=== PATIENT | male | born 1975 | race Caucasian/White ===

== ENCOUNTER → 2019-06-18 | Outpatient (CLI) | payer BC ==
[2019-06-18 14:40] LABS: COMPLEMENT C3 120 MG/DL (90-180); COMPLEMENT C4 21 MG/DL (10-40); RHEUMATOID FACTOR QUANT < 10.0 IU/ML (<15.0)
== END ==
LOC: M PLALAB 10:23
PROVIDERS: ATTEND Internal Medicine Pulmonary Disease
DX: R91.8 Other nonspecific abnormal finding of lung field (principal); R06.00 Dyspnea, unspecified

== ENCOUNTER → 2019-06-28 | Outpatient (CLI) | payer BC ==
[2019-06-28 13:40] LABS: HEMATOCRIT 48.7 % (42.0-52.0); HEMOGLOBIN 16.3 g/dl (13.5-17.5); MEAN CORPUSCULAR HEMOGLOBIN 29.7 pg (27.0-33.0); MEAN CORPUSCULAR HGB CONC 33.5 g/dl (32.0-36.5); MEAN CORPUSCULAR VOLUME 88.9 fl (80.0-96.0); PLATELET COUNT, AUTOMATED 311 10^3/uL (150-450); RED BLOOD COUNT 5.48 10^6/uL (4.30-6.10); WHITE BLOOD COUNT 10.5 10^3/uL (4.0-10.0)
[2019-06-28 13:49] LABS: APPEARANCE, URINE HAZY (CLEAR); BACTERIA, URINE AUTO NEGATIVE (NEGATIVE); BILIRUBIN, URINE AUTO NEGATIVE (NEGATIVE); BLOOD, URINE BLOOD 3+ (NEGATIVE); COLOR, URINE YELLOW (YELLOW); GLUCOSE, URINE (UA) AUTO NEGATIVE (NEGATIVE); KETONE, URINE AUTO NEGATIVE (NEGATIVE); LEUKOCYTE ESTERASE, URINE AUTO NEGATIVE (NEGATIVE); MUCUS, URINE SMALL (NEGATIVE); NITRITE, URINE AUTO NEGATIVE (NEGATIVE); PROTEIN, URINE AUTO 1+ mg/dL (NEGATIVE); RBC, URINE AUTO 0 /HPF (0-3); SPECIFIC GRAVITY URINE AUTO 1.021 (1.002-1.035); SQUAMOUS EPITHELIAL CELL UR AU 0 /HPF (0-6); UROBILINOGEN, URINE AUTO 0.2 mg/dL (0.0-2.0); WBC, URINE AUTO 2 /HPF (0-3)
[2019-06-28 14:04] LABS: INR 1.2; PROTHROMBIN TIME 14.9 SECONDS (11.8-14.0)
[2019-06-28 14:06] LABS: BLOOD UREA NITROGEN 13 MG/DL (7-18); CALCIUM LEVEL 8.9 MG/DL (8.5-10.1); CARBON DIOXIDE LEVEL 29 MEQ/L (21-32); CHLORIDE LEVEL 102 MEQ/L (98-107); CREATININE FOR GFR 0.85 MG/DL (0.70-1.30); GLOMERULAR FILTRATION RATE > 60.0 (>60); GLUCOSE, FASTING 106 MG/DL (70-100); POTASSIUM SERUM 4.1 MEQ/L (3.5-5.1); SODIUM LEVEL 136 MEQ/L (136-145)
[2019-06-28 14:15] LABS: ABG BASE EXCESS 2.5 (-2.0-2.0); ABG HCO3 26.7 MEQ/L (22.0-26.0); ABG O2 SATURATION 95.4 % (95.0-99.0); ABG PARTIAL PRESSURE CO2 39.7 mmHg (35.0-45.0); ABG PARTIAL PRESSURE O2 73.4 mmHg (75.0-100.0); ABG STANDARD HCO3 26.6 MEQ/L (22.0-26.0); ABG TOTAL CO2 27.9 MEQ/L (22.0-29.0); ABG pH (ARTERIAL) 7.445 UNITS (7.350-7.450)
--- NOTE | 2019-06-28 14:15 | ECGEPIP ---
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
[2019-06-28 14:19] LABS: PARTIAL THROMBOPLASTIN TIME 31.1 SECONDS (25.0-38.4)
--- NOTE | 2019-06-28 14:49 | REP ---
Clinical: Pre admission. Technique: PA and lateral. Comparison: 06/08/2019. Findings: Bilateral lower lobe infiltrates and pleural effusions noted. No pneumothorax. Cardiac silhouette is normal. Skeletal structures are intact. Impression: Bilateral lower lobe multifocal pneumonia. Electronically Signed by Bradford Naranjo MD 06/28/2019 02:41 P
== END ==
LOC: M ADMPAT 13:06
PROVIDERS: ATTEND Thoracic Surgery (Cardiothoracic Vascular Surgery)
DX: R91.8 Other nonspecific abnormal finding of lung field (principal)

== ENCOUNTER 2019-07-01 06:16 | Inpatient (IN) | payer BC ==
[2019-07-01] VITALS (10 sets, daily range): BP systolic 110–147; BP diastolic 58–82
[~2019-07-01] VITALS: Ht 170.2 cm; Wt 101.9 kg
[~2019-07-01 06:16] MED LIST: LIDOCAINE 1% MDV 20ML VIAL SQ PRN; LR 1,000 ML IV ONE; MUPIROCIN 2% OINT 22 GM TUBE TOP ONE; VANCOMYCIN HCL 1,000 MG, VIAL MATE ADAPTER 1 EACH in D5W 250 ML IV ONE
--- NOTE | 2019-07-01 07:51 | REPVR ---
PROCEDURE INFORMATION: Exam: CT Chest Without Contrast Exam date and time: 07/01/2019 7:11 AM Age: 44 years old Clinical indication: Condition or disease; Lung condition and disease; Pulmonary fibrosis; Patient HX: PT going to or today for bronch and possible thoracotomy; Additional info: Thorscopy TECHNIQUE: Imaging protocol: Computed tomography of the chest without contrast. 3D rendering: MIP and/or 3D reconstructed images were created by the technologist. Radiation optimization: All CT scans at this facility use at least one of these dose optimization techniques: automated exposure control; mA and/or kV adjustment per patient size (includes targeted exams where dose is matched to clinical indication); or iterative reconstruction. COMPARISON: CT CHEST W/O CONTRAST - OUTSIDE PRIOR 06/08/2019 12:00 AM FINDINGS: Lungs: There is basilar predominant consolidation in both lungs. Consolidation in the upper lung zones is patchy and peripheral. There is little ground-glass opacity. There is normal patency of the airways. There is mild peripheral septal thickening. The pattern and distribution of findings is very similar to the prior exam with slightly more confluent consolidation in the bilateral lower lobes. Pleural space: No pleural effusions or pneumothorax identified. Heart: The heart is normal in size. Aorta: No aortic aneurysm. Lymph nodes: There are multiple borderline sized mediastinal lymph nodes in the paratracheal, subcarinal, and AP window regions. There is a suggestion of mildly enlarged hilar lymph nodes, but assessment is limited by the lack of contrast. Bones/joints: No suspicious osseous lesions. No acute fractures or dislocations. Soft tissues: Mild gynecomastia is noted. IMPRESSION: 1. Persistent, bilateral, basilar predominant multifocal consolidation with mild peripheral septal thickening. This is nonspecific, but may be due to organizing pneumonia. 2. Mild mediastinal lymphadenopathy, probably reactive. Electronically signed by: Aviva Christiansen On 07/01/2019 07:50:58 AM
[2019-07-01] MEDS ORDERED: fentaNYL 100 MCG/2 ML INJECTION (J3010) As Ordered ONE (07:57)
[2019-07-01] MEDS ORDERED: MIDAZOLAM INJ 2 MG/2 ML VIAL (J2250) As Ordered ONE ×2 (07:57→08:34)
[2019-07-01] MEDS ORDERED: BUPIVACAINE HCL 0.5% 10 ML VIAL As Ordered ONE (08:32)
[2019-07-01] MEDS ORDERED: CETACAINE SPRAY 5GM As Ordered ONE (08:32)
[2019-07-01] MEDS ORDERED: BUPIVACAINE LIPOSOME/PF 1.3% 20ML VIAL (13.3MG/ML)(EXPAREL)(C9290 PER1MG) As Ordered ONE (08:32)
[2019-07-01] MEDS ORDERED: dexameTHASONE 4 MG/ML 1ML VIAL (J1100) As Ordered ONE (08:34)
[2019-07-01] MEDS ORDERED: ONDANSETRON 4MG/2ML VIAL (J2405) As Ordered ONE (08:34)
[2019-07-01] MEDS ORDERED: fentaNYL 250 MCG/5 ML INJECTION (J3010) As Ordered ONE (08:34)
[2019-07-01] MEDS ORDERED: propofoL 200 MG/20 ML VIAL As Ordered ONE ×3 (08:34→11:09)
[2019-07-01] MEDS ORDERED: LIDOCAINE 2% INJ 100 MG/5 ML SDV (FOR ANES.) As Ordered ONE (08:34)
[2019-07-01] MEDS ORDERED: ROCURONIUM BROMIDE 50 MG/5 ML VIAL As Ordered ONE ×3 (08:34→10:51)
[2019-07-01] MEDS ORDERED: BUPIVACAINE HCL 0.25% 30 ML VIAL As Ordered ONE (08:35)
[2019-07-01] MEDS ORDERED: WALLBOXKEY XX PRN (09:30)
[2019-07-01] MEDS ORDERED: diphenhydrAMINE INJ 50MG/ML VIAL (J1200) IV PRN (09:30)
[2019-07-01] MEDS ORDERED: NALOXONE INJ 0.4 MG/1 ML VIAL (J2310) IV PRN (09:30)
[2019-07-01] MEDS ORDERED: EPIDURAL/PCA KEYS XX PRN (09:30)
[2019-07-01] MEDS ORDERED: ONDANSETRON 4MG/2ML VIAL (J2405) IV PRN ×2 (09:30→12:45)
[2019-07-01] MEDS ORDERED: MIDAZOLAM INJ 2 MG/2 ML VIAL (J2250) IV ONE (09:30)
[2019-07-01] MEDS ORDERED: METOCLOPRAMIDE INJ 10MG/2ML VIAL (J2765) IV PRN ×2 (09:30→12:45)
[2019-07-01] MEDS ORDERED: fentaNYL 100 MCG/2 ML INJECTION (J3010) IV ONE (09:30)
[2019-07-01] MEDS ORDERED: SUGAMMADEX SODIUM 500 MG/5 ML VIAL (BRIDION) As Ordered ONE (10:38)
[2019-07-01] MEDS ORDERED: PHENYLephrine HCL 500 MCG/5 ML (100MCG/ML) SYRINGE (J2370) As Ordered ONE ×2 (10:39→11:03)
[2019-07-01] MEDS ORDERED: KCL 20MEQ IN D5/NS 1000ML 1,000 ML IV SCH (11:09)
[2019-07-01] MEDS ORDERED: NORCO, ANEXSIA 5/325MG TABLET (HYDROcodone/ACETAMINOPHEN) PO PRN (11:15)
[2019-07-01] MEDS ORDERED: LEVALBUTEROL 1.25 MG/0.5 ML CONCENTRATE NEB NEB PRN (11:15)
[2019-07-01] MEDS ORDERED: BISACODYL 10 MG SUPP PR PRN (11:15)
[2019-07-01] MEDS ORDERED: PERCOCET 5MG/325MG TAB PO PRN ×3 (11:15→12:45)
[2019-07-01] MEDS ORDERED: ACETAMINOPHEN TAB 650MG DOSE (2X325MG) PO PRN (11:15)
--- NOTE | 2019-07-01 11:49 | RO ---
DATE OF PROCEDURE: 07/01/2019 PREPROCEDURE DIAGNOSIS: Interstitial lung disease, hypoxia. POSTPROCEDURE DIAGNOSIS: Interstitial lung disease, hypoxia; pathology pending. PROCEDURE: Multiple wedge resection of right lower, right middle, and right upper lobe with video-assisted thoracoscopy surgery (VATS) technique, bronchoscopy and five-level rib block. SURGEON: Héctor Lucas MD WEIGHT REDUCTION SPECIALIST: ANESTHESIA: FINDINGS: The bronchoscopy revealed a normal branching tracheal tree. There were scant secretions. There were no intrabronchial lesions. The fluoroscopy revealed extensive involvement of the lung looking chappell and cobblestoned particularly in the right lower lobe. Wedge resection was taken of each lobe and these were sent for pathological examination as well as aerobic and anaerobic fungal and tuberculosis (TB) cultures. DESCRIPTION OF PROCEDURE: Under satisfactory single-lumen tube endotracheal intubation, the bronchoscope was passed into the tracheobronchial tree. It has normal branching pattern. Each segment and subsegmental were thoroughly inspected and there were no endobronchial lesions. There were scant secretions. The patient was intubated with a double-lumen tube and positioned accordingly. The patient was then turned into the left lateral decubitus position and sterilely prepped and draped in the usual fashion. An anterior VATS incision was made in the approximate sixth intercostal space and a 5 mm port was placed. Inspection revealed the above findings with the endoscope. Two additional incisions were made, one for an additional 5 mm port and one for a 12 mm port. The lower lobe lung at the costophrenic angle was seized with a grasper and a wedge resection was successfully completed, and the specimen was removed in an Endo Catch bag. The same likewise for the middle lobe anteriorly and the upper lobe of the cupula. They were all removed in Endo Catch bags. Specimens were properly sequestered in order, and I then cut the specimens for aerobic and anaerobic fungal and TB cultures. Two chest tubes were placed, #24 curved, a #24 straight anteriorly. These were secured to the chest wall. The lung was reinflated and Exparel placed in the incisions. A five-level rib block consisting of Exparel and Marcaine was then instilled. The 12 mm port incision was closed with running #0 Vicryl suture, followed by running #3-0 Vicryl suture for the subcutaneous tissue and running #4-0 Monopril subcuticular suture for the skin. Patient tolerated the procedure well and left the operating room in satisfactory condition for the recovery room. JUAN
[2019-07-01] MEDS ORDERED: KETOROLAC 30 MG/ML VIAL (J1885) As Ordered ONE (11:54)
[2019-07-01] MEDS: FENTANYL/BUPIVACAINE/NACL BAG 250 ML EPIDURAL SCH (12:05)
[2019-07-01 12:11] LABS: ABG BASE EXCESS 0.4 (-2.0-2.0); ABG HCO3 26.1 MEQ/L (22.0-26.0); ABG O2 SATURATION 87.4 % (95.0-99.0); ABG PARTIAL PRESSURE CO2 45.7 mmHg (35.0-45.0); ABG PARTIAL PRESSURE O2 54.6 mmHg (75.0-100.0); ABG STANDARD HCO3 24.6 MEQ/L (22.0-26.0); ABG TOTAL CO2 27.5 MEQ/L (22.0-29.0); ABG pH (ARTERIAL) 7.375 UNITS (7.350-7.450)
--- NOTE | 2019-07-01 12:12 | REP ---
Clinical: Follow-up interstitial lung disease. Comparison: 06/28/2019. Findings: Two right-sided chest tubes are identified and a minuscule right apical pneumothorax cannot be excluded. Chronic interstitial changes are suggested along with bilateral lower lobe opacities suggesting elements of atelectasis/consolidation. Impression: Two right-sided chest tubes. Cannot exclude a minuscule right apical pneumothorax. Bilateral lower lobe consolidations/atelectasis. Electronically Signed by Bradford Naranjo MD 07/01/2019 12:03 P
[2019-07-01 12:21] LABS: BASO # 0.1 10^3/uL (0.0-0.2); BASO % 0.7 % (0.0-1.0); EOS # 0.1 10^3/uL (0.0-0.5); HEMATOCRIT 46.2 % (42.0-52.0); HEMOGLOBIN 15.4 g/dl (13.5-17.5); LYMPH # 1.1 10^3/uL (1.5-5.0); LYMPH % 9.8 % (24.0-44.0); MEAN CORPUSCULAR HEMOGLOBIN 29.9 pg (27.0-33.0); MEAN CORPUSCULAR HGB CONC 33.3 g/dl (32.0-36.5); MEAN CORPUSCULAR VOLUME 89.7 fl (80.0-96.0); MONO # 0.5 10^3/uL (0.0-0.8); MONO % 4.1 % (0.0-5.0); NEUTROPHILS # 9.5 10^3/uL (1.5-8.5); NEUTROPHILS % 83.8 % (36.0-66.0); PLATELET COUNT, AUTOMATED 357 10^3/uL (150-450); RED BLOOD COUNT 5.15 10^6/uL (4.30-6.10); WHITE BLOOD COUNT 11.3 10^3/uL (4.0-10.0)
[2019-07-01] MEDS: KETOROLAC 30 MG/ML VIAL (J1885) IV SCH ×3 (12:31→17:42)
[2019-07-01] MEDS ORDERED: LR 1,000 ML IV SCH (12:45)
[2019-07-01] MEDS ORDERED: fentaNYL 100 MCG/2 ML INJECTION (J3010) IV PRN (12:45)
[2019-07-01 12:58] LABS: BLOOD UREA NITROGEN 14 MG/DL (7-18); CALCIUM LEVEL 8.6 MG/DL (8.5-10.1); CARBON DIOXIDE LEVEL 26 MEQ/L (21-32); CHLORIDE LEVEL 102 MEQ/L (98-107); CREATININE FOR GFR 0.84 MG/DL (0.70-1.30); GLOMERULAR FILTRATION RATE > 60.0 (>60); GLUCOSE, FASTING 142 MG/DL (70-100); POTASSIUM SERUM 5.1 MEQ/L (3.5-5.1); SODIUM LEVEL 135 MEQ/L (136-145)
[2019-07-01] MEDS: D5W/0.9% SODIUM CHLORIDE 1,000 ML IV SCH (14:40)
[2019-07-01] MEDS: LEVALBUTEROL 1.25 MG/0.5 ML CONCENTRATE NEB NEB SCH ×2 (15:25→20:25)
[2019-07-01] MEDS: DOCUSATE SODIUM 100 MG CAP PO SCH (21:26)
[2019-07-01] MEDS: HEPARIN SOD (PORCINE) 5000 UNITS/ML VIAL (J1644 PER 1000UNITS) SC SCH (21:26)
[2019-07-02] VITALS (9 sets, daily range): BP systolic 42–133; BP diastolic 20–83
[2019-07-02] MEDS: KETOROLAC 30 MG/ML VIAL (J1885) IV SCH ×4 (00:16→17:22)
[2019-07-02] MEDS: LEVALBUTEROL 1.25 MG/0.5 ML CONCENTRATE NEB NEB SCH ×4 (01:44→20:59)
[2019-07-02] MEDS: D5W/0.9% SODIUM CHLORIDE 1,000 ML IV SCH (02:09)
[2019-07-02 05:29] LABS: ABG BASE EXCESS 0.1 (-2.0-2.0); ABG HCO3 24.7 MEQ/L (22.0-26.0); ABG PARTIAL PRESSURE CO2 40.1 mmHg (35.0-45.0); ABG PARTIAL PRESSURE O2 146.8 mmHg (75.0-100.0); ABG STANDARD HCO3 24.6 MEQ/L (22.0-26.0); ABG TOTAL CO2 25.9 MEQ/L (22.0-29.0); ABG pH (ARTERIAL) 7.407 UNITS (7.350-7.450)
[2019-07-02 06:17] LABS: BASO % 0.3 % (0.0-1.0); EOS # 0.1 10^3/uL (0.0-0.5); EOS % 0.9 % (0.0-3.0); HEMATOCRIT 40.7 % (42.0-52.0); LYMPH # 1.3 10^3/uL (1.5-5.0); LYMPH % 11.3 % (24.0-44.0); MEAN CORPUSCULAR HEMOGLOBIN 29.6 pg (27.0-33.0); MEAN CORPUSCULAR HGB CONC 32.9 g/dl (32.0-36.5); MONO # 0.9 10^3/uL (0.0-0.8); MONO % 7.5 % (0.0-5.0); NEUTROPHILS # 9.4 10^3/uL (1.5-8.5); NEUTROPHILS % 79.4 % (36.0-66.0); PLATELET COUNT, AUTOMATED 283 10^3/uL (150-450); RED BLOOD COUNT 4.52 10^6/uL (4.30-6.10); WHITE BLOOD COUNT 11.8 10^3/uL (4.0-10.0)
[2019-07-02 06:18] LABS: HEMOGLOBIN 13.4 g/dl (13.5-17.5)
[2019-07-02 06:42] LABS: BLOOD UREA NITROGEN 13 MG/DL (7-18); CARBON DIOXIDE LEVEL 27 MEQ/L (21-32); CHLORIDE LEVEL 104 MEQ/L (98-107); CREATININE FOR GFR 0.73 MG/DL (0.70-1.30); GLOMERULAR FILTRATION RATE > 60.0 (>60); GLUCOSE, FASTING 114 MG/DL (70-100); SODIUM LEVEL 137 MEQ/L (136-145)
--- NOTE | 2019-07-02 07:53 | IPN ---
DATE: 07/02/2019 This now the first postoperative day for Mr. Kowalski. He has had a stable night of surgery and he is down to 3 liters nasal cannula. His pain is being well controlled with the epidural. His vital signs show a maximum temperature (t-max) of 98.5 with a heart rate that ranges between 87 and 94 and is in sinus rhythm, respiratory rate of 18 to 21 without the use of accessory muscles, who is 92-93% saturated on 3 liters nasal cannula and his blood pressure is ranging between 123/76 to 108/63. His intake and output over the past 24 hours has been recorded as 1230 in and 928 out for a positivity of 1400 mL. He has putout 148 mL of the chest tube. There is no air leak. Weight is pending today. PHYSICAL EXAMINATION: LUNGS: He has bibasilar crackles on both sides which are more fine and velcro like. Percussion is full to the diaphragm. CARDIAC EXAM: Without murmurs, clicks, gallops or rubs. I cannot feel his point of maximum impulse (PMI). S1, S2 are normal. ABDOMEN: Soft, nontender. Bowel sounds are positive. He is slightly distended and typanetic. EXTREMITIES: There is no pretibial edema. No calf tenderness. No differential swelling of the upper extremities. SKIN: Warm, dry and perfused without cyanosis or mottling, including that of the nail beds and knees. NECK: Supple. There is no jugular venous distention. No subcutaneous emphysema. Trachea is midline. MOUTH: Shows his mucous membranes to be pink and moist. Lips and commissures without lesions. There is no thrush. EYES: Show his pupils to be equal and reactive. Extraocular motion intact. Sclerae anicteric. NEUROLOGIC: Shows II through XII intact with gross motor and gross sensation intact. Gait is not tested. PSYCHIATRIC: Shows him to be awake and alert, oriented times three with appropriate mood and affect and conversational. His white count today is 11.8 with a hemoglobin and hematocrit of 13.4 and 40.7 respectively. Platelet count is 283 and differential shows 79% neutrophils, 11% lymphocytes, and 7% monocytes. There are no immature forms. No toxic granulations. Electrolytes are normal with a BUN and creatinine of 13 and 0.73, a glucose of 114, and a calcium of 8.0. Chest x-ray is pending today. IMPRESSION: 1. Interstitial lung disease. Final pathology pending. 2. Hypoxia. 3. One day status post multiple wedge resections. PLAN AND DISCUSSION: I will transfer him to the progressive care unit (PCU) today. I will continue him on chest tube suction. I will not diurese him today. I am quite gratified that he is down to 3 liters nasal cannula.
[2019-07-02] MEDS: FENTANYL/BUPIVACAINE/NACL BAG 250 ML EPIDURAL SCH (08:20)
[2019-07-02] MEDS ORDERED: PANTOPRAZOLE 40MG TAB (PROTONIX) PO SCH (09:00)
[2019-07-02] MEDS ORDERED: PANTOPRAZOLE 40MG INJ (PROTONIX) (C9113) IV SCH (09:00)
--- NOTE | 2019-07-02 09:07 | REP ---
Clinical: Interstitial lung disease. Technique: PA and lateral. Comparison: 07/01/2019. Findings: Two right-sided chest tubes are in stable position. Visualized mediastinum and cardiac silhouette are grossly normal. Bilateral mid to lower lobe opacities consistent with consolidation/atelectasis and small pleural effusions are essentially unchanged. No obvious pneumothorax identified (although small right anterior pneumothorax cannot definitively be excluded). Impression: 1. No significant change from prior examination with continued primarily mid to lower lobe opacities suggesting atelectasis/consolidation and small effusions. 2. No definite pneumothorax although subtle small anterior right pneumothorax cannot definitively be excluded. Electronically Signed by Bradford Naranjo MD 07/02/2019 08:59 A
[2019-07-02] MEDS: MOM 30ML SUSPENSION UDC PO SCH (09:14)
[2019-07-02] MEDS: HEPARIN SOD (PORCINE) 5000 UNITS/ML VIAL (J1644 PER 1000UNITS) SC SCH ×2 (09:15→21:13)
[2019-07-02] MEDS: DOCUSATE SODIUM 100 MG CAP PO SCH ×2 (09:15→21:12)
[2019-07-02] MEDS ORDERED: SLF 3 ML SYR IV PRN (13:15)
[2019-07-02] MEDS: SLF 3 ML SYR IV SCH ×2 (14:10→21:14)
[2019-07-03] VITALS: BP 129/72
[2019-07-03] MEDS: KETOROLAC 30 MG/ML VIAL (J1885) IV SCH ×4 (00:14→18:12)
[2019-07-03] MEDS: LEVALBUTEROL 1.25 MG/0.5 ML CONCENTRATE NEB NEB SCH ×4 (02:11→20:24)
[2019-07-03 04:00] VITALS: BP 126/75
[2019-07-03] MEDS: FENTANYL/BUPIVACAINE/NACL BAG 250 ML EPIDURAL SCH (04:56)
[2019-07-03] MEDS: SLF 3 ML SYR IV SCH ×3 (05:52→21:32)
[2019-07-03 08:00] VITALS: BP 154/76
--- NOTE | 2019-07-03 08:49 | REP ---
Clinical: History of interstitial lung disease. Technique: PA and lateral. Comparison: 07/02/2019. Findings: Two right-sided chest tubes are in stable position. Bilateral pleuroparenchymal changes including diffuse bilateral opacities and small pleural effusions are essentially unchanged. No obvious pneumothorax. Impression: No significant change. Bilateral pleuroparenchymal opacities again noted. Electronically Signed by Bradford Naranjo MD 07/03/2019 08:40 A
[2019-07-03 08:58] LABS: BASO # 0.1 10^3/uL (0.0-0.2); EOS # 0.5 10^3/uL (0.0-0.5); EOS % 5.9 % (0.0-3.0); HEMATOCRIT 44.9 % (42.0-52.0); HEMOGLOBIN 14.7 g/dl (13.5-17.5); LYMPH # 1.9 10^3/uL (1.5-5.0); LYMPH % 20.9 % (24.0-44.0); MEAN CORPUSCULAR HEMOGLOBIN 29.8 pg (27.0-33.0); MEAN CORPUSCULAR HGB CONC 32.7 g/dl (32.0-36.5); MEAN CORPUSCULAR VOLUME 91.1 fl (80.0-96.0); MONO # 0.7 10^3/uL (0.0-0.8); MONO % 7.6 % (0.0-5.0); NEUTROPHILS # 5.7 10^3/uL (1.5-8.5); NEUTROPHILS % 63.5 % (36.0-66.0); PLATELET COUNT, AUTOMATED 338 10^3/uL (150-450); RED BLOOD COUNT 4.93 10^6/uL (4.30-6.10)
[2019-07-03] MEDS ORDERED: PANTOPRAZOLE 40MG TAB (PROTONIX) PO SCH (09:00)
[2019-07-03] MEDS: HEPARIN SOD (PORCINE) 5000 UNITS/ML VIAL (J1644 PER 1000UNITS) SC SCH ×2 (09:12→21:32)
[2019-07-03] MEDS: PANTOPRAZOLE 40MG TAB (PROTONIX) PO SCH (09:12)
[2019-07-03] MEDS: MOM 30ML SUSPENSION UDC PO SCH (09:12)
[2019-07-03] MEDS: DOCUSATE SODIUM 100 MG CAP PO SCH ×2 (09:12→21:32)
[2019-07-03 09:17] LABS: BLOOD UREA NITROGEN 17 MG/DL (7-18); CALCIUM LEVEL 8.2 MG/DL (8.5-10.1); CARBON DIOXIDE LEVEL 27 MEQ/L (21-32); CHLORIDE LEVEL 103 MEQ/L (98-107); CREATININE FOR GFR 0.87 MG/DL (0.70-1.30); GLOMERULAR FILTRATION RATE > 60.0 (>60); GLUCOSE, FASTING 127 MG/DL (70-100); POTASSIUM SERUM 4.3 MEQ/L (3.5-5.1); SODIUM LEVEL 136 MEQ/L (136-145)
[2019-07-03 12:00] VITALS: BP 141/90
[2019-07-03] MEDS ORDERED: FUROSEMIDE 40 MG/4 ML VIAL (J1940) IV ONE (14:00)
--- NOTE | 2019-07-03 15:59 | IPN ---
DATE: 07/03/2019 This is now the second postoperative day for Mr. Kowalski. He has had a stable 24 hours. His pain is being well controlled at the chest tube insertion site. VITAL SIGNS: His vital signs show a maximum temperature (t-max) of 99.9 with a heart rate that ranges between 122 and 97 in a sinus rhythm, respiratory rate of 19 to 20 without the use of accessory muscles, who is 92 to 90% saturated on 3 liters nasal cannula, and whose blood pressure is ranging between 154/76 to 126/75. His intake and output over the past 24 hours has been recorded as 2985 in and 1217 out for a positivity of 1768 mL. He has put 192 mL out of the chest tube. He weighs 97.8 kg today compared to 100 kg yesterday. PHYSICAL EXAMINATION: LUNGS: He has the continued bibasilar Velcro crackles, particularly during inspiration. Percussion note is full to the diaphragm. CARDIAC EXAM: Without murmurs, clicks, gallops or rubs. I cannot feel his point of maximum impulse (PMI). S1, S2 are normal. ABDOMEN: Soft, nontender. Bowel sounds positive. There is no hepatomegaly. No costovertebral angle tenderness. EXTREMITIES: Show trace pretibial edema. No calf tenderness. No differential swelling of the upper extremities. SKIN: Warm, dry and perfused without cyanosis or mottling, including that of the nail beds and knees. NECK: Supple. There is no jugular venous distention. No subcutaneous emphysema. Trachea is midline. MOUTH: Shows his mucous membranes to be pink and moist. Lips and commissures without lesions. There is no thrush. EYES: Show his pupils to be equal and reactive. Extraocular motion intact. Sclerae anicteric. NEUROLOGIC: Shows II through XII intact with gross motor and gross sensation intact. Gait is not tested. PSYCHIATRIC: Shows him to be awake and alert, oriented times three with appropriate mood and affect and conversational. LABORATORY DATA His white count today is 9.0 with a hemoglobin and hematocrit of 14.7 and 44.9 and a platelet count of 338. Differential shows 68% neutrophils, 20% lymphocytes, 7% monocytes. There are no immature forms. No toxic granulations. His electrolytes are normal with a BUN and creatinine of 17 and 0.87, glucose of 127, calcium of 8.2. There are no blood gases on him today. His chest x-ray shows his lung fully expanded to the chest wall. Chest tubes are in good place. He has postoperative and infiltrative changes in the right lung. IMPRESSION: 1. Interstitial lung disease, final pathology pending. 2. Hypoxia. 3. Two days status post multiple wedge resections. PLAN/DISCUSSION: I will remove his chest tube from suction today. I will diurese him today. There is no air leak, for which I am gratified. I will probably remove the chest tubes tomorrow and discharge him on Friday.
[2019-07-03 16:00] VITALS: BP 135/85
[2019-07-03 20:00] VITALS: BP 137/80
[2019-07-04] VITALS: BP 129/71
[2019-07-04] MEDS: KETOROLAC 30 MG/ML VIAL (J1885) IV SCH ×5 (00:04→23:37)
[2019-07-04] MEDS: FENTANYL/BUPIVACAINE/NACL BAG 250 ML EPIDURAL SCH ×2 (01:24→23:57)
[2019-07-04] MEDS: LEVALBUTEROL 1.25 MG/0.5 ML CONCENTRATE NEB NEB SCH ×4 (01:43→20:42)
[2019-07-04 04:00] VITALS: BP 129/70
[2019-07-04] MEDS: SLF 3 ML SYR IV SCH ×3 (05:11→20:02)
[2019-07-04 06:54] LABS: BLOOD UREA NITROGEN 21 MG/DL (7-18); CALCIUM LEVEL 8.6 MG/DL (8.5-10.1); CARBON DIOXIDE LEVEL 30 MEQ/L (21-32); CHLORIDE LEVEL 100 MEQ/L (98-107); CREATININE FOR GFR 0.76 MG/DL (0.70-1.30); GLOMERULAR FILTRATION RATE > 60.0 (>60); GLUCOSE, FASTING 92 MG/DL (70-100); POTASSIUM SERUM 4.1 MEQ/L (3.5-5.1); SODIUM LEVEL 133 MEQ/L (136-145)
[2019-07-04 07:42] LABS: BASO # 0.1 10^3/uL (0.0-0.2); BASO % 1.1 % (0.0-1.0); EOS # 0.8 10^3/uL (0.0-0.5); EOS % 7.6 % (0.0-3.0); HEMATOCRIT 41.4 % (42.0-52.0); HEMOGLOBIN 13.7 g/dl (13.5-17.5); LYMPH # 2.1 10^3/uL (1.5-5.0); LYMPH % 20.7 % (24.0-44.0); MEAN CORPUSCULAR HEMOGLOBIN 29.9 pg (27.0-33.0); MEAN CORPUSCULAR HGB CONC 33.1 g/dl (32.0-36.5); MEAN CORPUSCULAR VOLUME 90.4 fl (80.0-96.0); MONO # 0.8 10^3/uL (0.0-0.8); MONO % 7.5 % (0.0-5.0); NEUTROPHILS # 6.3 10^3/uL (1.5-8.5); NEUTROPHILS % 62.4 % (36.0-66.0); PLATELET COUNT, AUTOMATED 333 10^3/uL (150-450); RED BLOOD COUNT 4.58 10^6/uL (4.30-6.10)
[2019-07-04 08:00] VITALS: BP 137/79
--- NOTE | 2019-07-04 09:00 | REP ---
Clinical: Follow up. Post procedure. Technique: PA and lateral. Comparison: 07/03/2019. Findings: Two right-sided chest tubes and right-sided postsurgical changes with basilar atelectasis are again appreciated. Left basilar atelectasis and small pleural reaction again noted and unchanged. Current examination demonstrates small right apical pneumothorax. The mediastinum and cardiac silhouette are stable. Skeletal structures intact. Impression: 1. Right-sided postsurgical changes. 2. Right apical pneumothorax. 3. Bibasilar atelectasis and small pleural reactions similar to prior examination. Electronically Signed by Bradford Naranjo MD 07/04/2019 08:52 A
[2019-07-04] MEDS: MOM 30ML SUSPENSION UDC PO SCH (09:19)
[2019-07-04] MEDS: DOCUSATE SODIUM 100 MG CAP PO SCH ×2 (09:19→20:02)
[2019-07-04] MEDS: PANTOPRAZOLE 40MG TAB (PROTONIX) PO SCH (09:19)
[2019-07-04] MEDS: HEPARIN SOD (PORCINE) 5000 UNITS/ML VIAL (J1644 PER 1000UNITS) SC SCH ×2 (09:20→20:02)
[2019-07-04 12:00] VITALS: BP 143/85
[2019-07-04] MEDS ORDERED: FUROSEMIDE 40 MG/4 ML VIAL (J1940) IV ONE (13:00)
--- NOTE | 2019-07-04 13:33 | IPN ---
DATE: 07/04/2019 This is now the third postoperative day for Mr. Kowalski. His pain is being fairly well controlled at the chest tube insertion site. His vital signs show a maximum temperature (T-max) of 98.9 with a heart rate that ranges between 120 and 105 in sinus rhythm and a respiratory rate of 18-20 without the use of accessory muscles, who is 91% saturated on 3 liters nasal cannula and his blood pressures range between 129/70 to 137/79. His intake and output over the past 24 hours has been recorded as 2282 in and 2700 out for a negativity of 418 mL. He has put out 2500 mL in urine. He put 200 mL out the chest tube yesterday and 40 in the last 12 hours. He weighs 101.2 kg today compared to 97.8 kg yesterday. On physical examination, he has bibasilar Velcro crackles which are continuing and unchanged. Percussion note is full to the diaphragm. Cardiac exam is without murmurs, clicks, gallops or rubs. I cannot feel his point of maximum impulse (PMI). S1 and S2 are normal. Abdomen is soft and nontender. Bowel sounds are positive. He is slightly distended. There is no hepatomegaly. No costovertebral (CVA) tenderness. Extremities show trace pretibial edema with no calf tenderness. No differential swelling of the upper extremities. Skin is warm, dry and perfused without cyanosis or mottling including that of the nail beds and knees. Neck is supple. There is no jugular venous distention. No subcutaneous emphysema. Trachea is midline. Mouth shows his mucous membranes to be pink and moist. Lips and commissures are without lesions. There is no thrush. Eyes show his pupils to be equal and reactive. Extraocular movements intact. Sclerae nonicteric. Neurologic shows II-XII intact along with gross motor and gross sensation intact. Gait is not tested. Psychiatric showed him to be awake, alert and oriented times three with appropriate and affect and conversational. His white count today is 10.0 with hemoglobin and hematocrit 13.7 and 41.4 respectively with a platelet count 333. Differential shows 62% neutrophils, 20% lymphocytes, 7% monocytes. There are no immature forms or toxic granulations. His electrolytes are essentially normal with a marginally low sodium of 133. BUN and creatinine of 21 and 0.76 and a glucose of 92 and a calcium of 8.9. Chest x-ray today shows his lung fully expanded to the chest wall. There is an apical air cap. Left costophrenic angle is blunted with an atelectatic or infiltrative process, which is unchanged from yesterday. IMPRESSION: 1. Interstitial lung disease final pathology pending. 2. Postoperative day #3 status post multiple wedge resections. 3. Hypoxia. PLAN: I will remove his chest tube today. I will continue to diurese him. Will discontinue his Villalobos and wean his epidural. Hopefully, I will be able to send him home tomorrow.
[2019-07-04 16:00] VITALS: BP 129/75
[2019-07-04 20:00] VITALS: BP 117/63
[2019-07-05] VITALS: BP 129/71
[2019-07-05] MEDS: LEVALBUTEROL 1.25 MG/0.5 ML CONCENTRATE NEB NEB SCH ×2 (01:33→07:31)
[2019-07-05 04:00] VITALS: BP 114/65
[2019-07-05 05:44] LABS: BASO # 0.1 10^3/uL (0.0-0.2); BASO % 1.1 % (0.0-1.0); EOS # 0.8 10^3/uL (0.0-0.5); EOS % 8.6 % (0.0-3.0); HEMATOCRIT 40.5 % (42.0-52.0); HEMOGLOBIN 13.4 g/dl (13.5-17.5); LYMPH # 1.8 10^3/uL (1.5-5.0); LYMPH % 19.5 % (24.0-44.0); MEAN CORPUSCULAR HEMOGLOBIN 29.5 pg (27.0-33.0); MEAN CORPUSCULAR HGB CONC 33.1 g/dl (32.0-36.5); MEAN CORPUSCULAR VOLUME 89.2 fl (80.0-96.0); MONO # 0.7 10^3/uL (0.0-0.8); MONO % 7.5 % (0.0-5.0); NEUTROPHILS # 5.7 10^3/uL (1.5-8.5); NEUTROPHILS % 62.3 % (36.0-66.0); PLATELET COUNT, AUTOMATED 321 10^3/uL (150-450); RED BLOOD COUNT 4.54 10^6/uL (4.30-6.10); WHITE BLOOD COUNT 9.2 10^3/uL (4.0-10.0)
[2019-07-05] MEDS: KETOROLAC 30 MG/ML VIAL (J1885) IV SCH ×2 (05:47→12:38)
[2019-07-05] MEDS: SLF 3 ML SYR IV SCH ×2 (05:47→12:38)
[2019-07-05 06:01] LABS: BLOOD UREA NITROGEN 23 MG/DL (7-18); CALCIUM LEVEL 8.4 MG/DL (8.5-10.1); CARBON DIOXIDE LEVEL 31 MEQ/L (21-32); CHLORIDE LEVEL 99 MEQ/L (98-107); CREATININE FOR GFR 0.83 MG/DL (0.70-1.30); GLOMERULAR FILTRATION RATE > 60.0 (>60); GLUCOSE, FASTING 96 MG/DL (70-100); POTASSIUM SERUM 4.1 MEQ/L (3.5-5.1); SODIUM LEVEL 133 MEQ/L (136-145)
[2019-07-05 08:00] VITALS: BP 150/70
--- NOTE | 2019-07-05 08:35 | REP ---
Clinical: Interstitial lung disease. Post procedure follow-up. Comparison: 07/04/2019. Findings: Right-sided chest tube has been removed. Bilateral lower lobe opacities suggesting elements of atelectasis and pleural effusion are unchanged. Previously identified small right apical pneumothorax is not definitively identified on current examination. Mediastinum and cardiac silhouette stable. Skeletal structures intact. Impression: 1. Status post right chest tube removal. 2. Bibasilar opacities suggesting atelectasis and effusions are unchanged. 3. Previously identified small right apical pneumothorax not identifiable. Electronically Signed by Bradford Naranjo MD 07/05/2019 08:26 A
[2019-07-05] MEDS: MOM 30ML SUSPENSION UDC PO SCH (08:45)
[2019-07-05] MEDS: DOCUSATE SODIUM 100 MG CAP PO SCH (08:45)
[2019-07-05] MEDS: PANTOPRAZOLE 40MG TAB (PROTONIX) PO SCH (08:45)
[2019-07-05] MEDS: HEPARIN SOD (PORCINE) 5000 UNITS/ML VIAL (J1644 PER 1000UNITS) SC SCH (08:46)
[2019-07-05 12:00] VITALS: BP 125/64
--- NOTE | 2019-07-05 12:37 | DSES ---
DATE OF ADMISSION: 07/01/2019 DATE OF DISCHARGE: DISCHARGE DIAGNOSIS: 1. Interstitial lung disease, final pathology pending. 2. Postoperative day four status post multiple wedge resections. 3. Hypoxia. HOSPITAL COURSE: The patient is a 44-year-old, white male who has had progressive shortness of breath and who was found to have what looks to be interstitial lung disease, particularly in the lower lobes. 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 He was therefore taken to the operating room on 07/01/2019 and underwent right lower lobe, right middle lobe, and right upper lobe wedge resections. He had a benign postoperative course with his chest tubes being removed on the third postoperative day. His chest x-ray showed his lung fully expanded to the chest wall with the lower lobe infiltrates as noted on his preoperative films. He is being discharged on no medications except for over the counter Aleve as needed pain. His discharge hemoglobin/hematocrit (H/H) is 13.4 and 40.5 with a white count of 9.2. Electrolytes show a largely low sodium of 133 with a BUN and creatinine of 23 and 0.83. He will return to see me in one week along with Dr. Jones for followup when we get the pathology back.
== END 2019-07-05 14:14 | disposition home or self-care (01) | DRG 121 ==
LOC: M OR 06:16 → M ICU 13:57 → M PCU 07-02 11:41
PROVIDERS: ADMIT Thoracic Surgery (Cardiothoracic Vascular Surgery); ATTEND Thoracic Surgery (Cardiothoracic Vascular Surgery)
PROC: 0BBD4ZX Excision of Right Middle Lung Lobe, Percutaneous Endoscopic Approach, Diagnostic (ICD-10-PCS; 2019-07-01)
PROC: 0BBC4ZX Excision of Right Upper Lung Lobe, Percutaneous Endoscopic Approach, Diagnostic (ICD-10-PCS; 2019-07-01)
PROC: 8E0W4CZ Robotic Assisted Procedure of Trunk Region, Percutaneous Endoscopic Approach (ICD-10-PCS; 2019-07-01)
PROC: 0BBF4ZX Excision of Right Lower Lung Lobe, Percutaneous Endoscopic Approach, Diagnostic (ICD-10-PCS; principal; 2019-07-01 08:30)
DX: J84.10 Pulmonary fibrosis, unspecified (principal); R09.02 Hypoxemia; J84.9 Interstitial pulmonary disease, unspecified

== ENCOUNTER → 2019-07-12 | Outpatient (CLI) | payer BC ==
--- NOTE | 2019-07-12 11:43 | REPPI ---
PA and lateral chest: Comparison is 07/05/2019. There are bibasilar densities, not significantly changed. The there is a surgical staple line medially in the right upper lobe, unchanged. The lung neumann otherwise clear. The cardiac size is normal. The jake, mediastinum, skeletal structures are unremarkable. Impression: No significant interval change. Electronically Signed by Ed Jolly MD 07/12/2019 11:34 A
== END ==
LOC: M PLAIMG 10:26
PROVIDERS: ATTEND Thoracic Surgery (Cardiothoracic Vascular Surgery)
DX: R91.8 Other nonspecific abnormal finding of lung field (principal); J84.10 Pulmonary fibrosis, unspecified

== ENCOUNTER → 2019-07-16 | Outpatient (CLI) | payer BC | LOC: M PLALAB 12:00 | PROVIDERS: ATTEND Internal Medicine Pulmonary Disease | DX: J84.09 Other alveolar and parieto-alveolar conditions (principal) ==

== ENCOUNTER → 2020-07-03 | Outpatient (CLI) | payer BC ==
--- NOTE | 2020-07-04 06:04 | REP ---
INDICATION: INTERSTITIAL PULMONARY DISEASE, UNSPECIFIED COMPARISON: 07/01/2019 TECHNIQUE: Axial noncontrast high-resolution images from the thoracic inlet to the upper abdomen with coronal and sagittal reformations. Images obtained in prone and supine positioning on inspiration and expiration. This CT examination was performed using the following dose reduction techniques: Automated exposure control, adjustment of mA and/or kv according to the patient's size, and use of iterative reconstruction technique. FINDINGS: There is evidence for mild/moderate bronchiectasis in a relatively bilateral perihilar distribution with extension to the lower lung zones along with peribronchial thickening, interstitial thickening, and elements of presumed chronic fibroatelectatic changes. These findings suggest sequelae of multiple previous infectious/inflammatory processes. No significant consolidation, definite focal pathologic nodule or mass lesion. No pleural effusion. No pneumothorax. No significant adenopathy. Thoracic aorta, pulmonary vasculature, and heart/pericardium are normal. Surrounding musculoskeletal structures are intact and normal. Upper abdomen demonstrates normal bilateral adrenal glands. IMPRESSION: Chronic changes as described above primarily in a perihilar and lower lung zone distribution suggesting changes related to previous bouts of infectious/inflammatory processes. <Electronically signed by Bradford Naranjo > 07/04/20 0601
== END ==
LOC: M RAD 14:34
PROVIDERS: ATTEND Internal Medicine Pulmonary Disease
DX: J84.9 Interstitial pulmonary disease, unspecified (principal)

== ENCOUNTER 2020-09-22 14:49 | Outpatient (CLI) | payer BC ==
[~2020-09-22] VITALS: Ht 167.6 cm; Wt 95.2 kg
[2020-09-22 15:10] VITALS: BP 132/88
[2020-09-22] MEDS ORDERED: ALBUTEROL SULFATE 2.5 MG/0.5 ML INH NEB SOLN INH PRN (15:30)
[2020-09-22] MEDS ORDERED: EPINEPHrine INJ 1 MG/ML 1ML AMP IM PRN (15:30)
[2020-09-22] MEDS ORDERED: ALBUTEROL 90 MCG/ACT 8GM HFA INHALER INH PRN (15:30)
[2020-09-22] MEDS ORDERED: diphenhydrAMINE 50MG/ML VIAL (J1200) IV PRN (15:30)
[2020-09-22] MEDS ORDERED: NS 1,000 ML IV SCH (15:30)
[2020-09-22] MEDS ORDERED: methylPREDNISolone 125MG 2ML VIAL IV PRN (15:30)
[2020-09-22] MEDS ORDERED: BAMLANIVIMAB 700 MG, ETESEVIMAB 1,400 MG in NS 250 ML IV ONE (16:00)
[2020-09-22] MEDS ORDERED: PRED5TA PO (16:08)
[2020-09-22] MEDS ORDERED: NOXI1TAB PO (16:10)
[2020-09-22] MEDS ORDERED: VITA100T59 PO (16:10)
[2020-09-22] MEDS ORDERED: MYCO1TAB PO (16:10)
[2020-09-22 16:20] VITALS: BP 114/85
[2020-09-22 16:50] VITALS: BP 135/86
[2020-09-22 17:27] VITALS: BP 153/90
[2020-09-22 17:53] VITALS: BP 132/82
[2020-09-22 18:18] VITALS: BP 140/72
== END 2020-09-22 18:27 | disposition home or self-care (01) ==
LOC: M OPCLI4PR 14:49 → M 4MAIN 14:53 → M OPCLI4PR 18:27
PROVIDERS: ATTEND Internal Medicine Pulmonary Disease
DX: U07.1 COVID-19 (principal); Z88.0 Allergy status to penicillin; Z88.8 Allergy status to other drugs, medicaments and biological substances